=== PATIENT | male | born 1970 | race Caucasian/White ===

== ENCOUNTER 2018-06-11 11:54 | Inpatient (IN) | payer MEDICAID ==
[~2018-06-11] VITALS: Ht 182.9 cm; Wt 171.8 kg
[2018-06-11 14:42] VITALS: BP 120/71
[2018-06-11] MEDS ORDERED: PLEASE ENTER HEIGHT AND WEIGHT MC SCH (15:44)
[2018-06-11] MEDS ORDERED: morphine SULFATE 10 MG/ML, 1ML IVPush PRN (16:00)
[2018-06-11] MEDS ORDERED: ONDANSETRON ODT 4 MG PO PRN (16:00)
[2018-06-11] MEDS ORDERED: NITROGLYCERIN 0.4 MG BOTTLE (25 TABS) SL PRN (16:00)
[2018-06-11] MEDS ORDERED: ONDANSETRON 2MG/ML, 2ML IVPush PRN (16:00)
[2018-06-11] MEDS ORDERED: ACETAMINOPHEN 325 MG TABLET PO PRN (16:00)
[2018-06-11] MEDS: INSULIN LISPRO 100 UNITS/ML, PEN SQ-INSULIN SCH ×3 (16:00→23:58)
[2018-06-11] MEDS ORDERED: METO25TA91 PO (16:53)
[2018-06-11] MEDS ORDERED: AMLO-150 PO (16:53)
[2018-06-11] MEDS ORDERED: LOSA50TA14 PO (16:53)
[2018-06-11] MEDS ORDERED: ISOS20TA3 PO (16:53)
[2018-06-11] MEDS ORDERED: ATOR40TA78 PO (16:53)
[2018-06-11] MEDS ORDERED: ASPI-650 PO (16:53)
[2018-06-11] MEDS ORDERED: GABA600T7 PO (16:53)
[2018-06-11] MEDS ORDERED: FAMO-79 PO (16:53)
[2018-06-11] MEDS ORDERED: METO25TA35 PO (16:59)
[2018-06-11] MEDS ORDERED: LOSA1TAB22 PO (16:59)
[2018-06-11] MEDS ORDERED: CLOP75TA52 PO (16:59)
[2018-06-11 17:32] LABS: BASOPHILS # (AUTO) 0.04 x10^3/uL (0-0.1); BASOPHILS % (AUTO) 1 % (0-1); EOSINOPHILS # (AUTO) 0.11 x10^3/uL (0-0.4); EOSINOPHILS % (AUTO) 2 % (1-7); LYMPHOCYTES # (AUTO) 1.56 x10^3/uL (1-3.4); LYMPHOCYTES % (AUTO) 22 % (22-44); MD NO; MEAN CORPUSCULAR HEMOGLOBIN 29.7 pg (27.5-34.5); MEAN CORPUSCULAR HGB CONC 34.1 g/dL (33.2-36.2); MEAN CORPUSCULAR VOLUME 87.3 fL (81-97); MEAN PLATELET VOLUME 7.5 fL (7.4-10.4); MONOCYTES # (AUTO) 0.47 x10^3/uL (0.2-0.8); MONOCYTES % (AUTO) 7 % (2-9); NEUTROPHILS # (AUTO) 4.92 x10^3/uL (1.8-6.8); NEUTROPHILS % (AUTO) 69 % (42-75); PLATELET COUNT 259 x10^3/uL (130-400); RED BLOOD COUNT 4.55 x10^6/uL (4.38-5.82); RED CELL DISTRIBUTION WIDTH 13.8 % (9.4-14.8)
[2018-06-11 17:41] LABS: INTERNATIONAL NORMALIZED RATIO 0.97 (0.93-1.1); PROTHROMBIN TIME 10.2 Seconds (9.6-11.5)
[2018-06-11 17:43] LABS: ANION GAP 6 mmol/L (5-15); CALCIUM 8.8 mg/dL (8.5-10.1); CHLORIDE 104 mmol/L (98-107); CREATININE 1.12 mg/dL (0.7-1.3)
[2018-06-11] MEDS: SODIUM CHLORIDE 0.9% 1,000 ML IV SCH ×2 (17:45→23:53)
[2018-06-11 17:47] LABS: TROPONIN I < 0.015 ng/mL (0.000-0.045)
[2018-06-11] MEDS: HEPARIN 5,000 UNITS/ML, 1ML SQ SCH ×2 (18:01→23:54)
[2018-06-11] MEDS: CARVEDILOL 6.25 MG TABLET PO SCH (18:08)
[2018-06-11 19:15] VITALS: BP 112/66
[2018-06-11] MEDS ORDERED: ATORVASTATIN 40 MG TABLET PO SCH (21:00)
[2018-06-11] MEDS: ATORVASTATIN 40 MG TABLET PO SCH (21:01)
[2018-06-11] MEDS: GABAPENTIN 300 MG CAPSULE PO SCH (21:01)
[2018-06-11] MEDS: FAMOTIDINE 20 MG TABLET PO SCH (21:02)
[2018-06-11 21:44] LABS: TROPONIN I < 0.015 ng/mL (0.000-0.045)
[2018-06-12] MEDS: SODIUM CHLORIDE 0.9% 1,000 ML IV SCH ×3 (00:10→20:39)
[2018-06-12 02:00] VITALS: BP 120/77
[2018-06-12] MEDS ORDERED: GABAPENTIN 300 MG CAPSULE PO ONE (03:30)
[2018-06-12 05:01] LABS: BASOPHILS # (AUTO) 0.12 x10^3/uL (0-0.1); BASOPHILS % (AUTO) 2 % (0-1); EOSINOPHILS # (AUTO) 0.15 x10^3/uL (0-0.4); EOSINOPHILS % (AUTO) 2 % (1-7); LYMPHOCYTES # (AUTO) 1.67 x10^3/uL (1-3.4); LYMPHOCYTES % (AUTO) 24 % (22-44); MD NO; MEAN CORPUSCULAR HEMOGLOBIN 29.1 pg (27.5-34.5); MEAN CORPUSCULAR HGB CONC 33.3 g/dL (33.2-36.2); MEAN CORPUSCULAR VOLUME 87.4 fL (81-97); MEAN PLATELET VOLUME 7.5 fL (7.4-10.4); MONOCYTES % (AUTO) 8 % (2-9); NEUTROPHILS # (AUTO) 4.57 x10^3/uL (1.8-6.8); NEUTROPHILS % (AUTO) 64 % (42-75); PLATELET COUNT 220 x10^3/uL (130-400); RED BLOOD COUNT 4.26 x10^6/uL (4.38-5.82); RED CELL DISTRIBUTION WIDTH 13.6 % (9.4-14.8)
[2018-06-12 05:12] LABS: ANION GAP 3 mmol/L (5-15); CALCIUM 8.6 mg/dL (8.5-10.1); CHLORIDE 106 mmol/L (98-107); CREATININE 1.06 mg/dL (0.7-1.3)
[2018-06-12 05:16] LABS: PROTHROMBIN TIME 10.5 Seconds (9.6-11.5)
[2018-06-12] MEDS ORDERED: ASPIRIN 325 MG TABLET EC PO SCH (06:00)
[2018-06-12] MEDS: CARVEDILOL 6.25 MG TABLET PO SCH ×2 (06:04→18:02)
[2018-06-12 07:10] VITALS: BP 113/65
[2018-06-12] MEDS: GABAPENTIN 300 MG CAPSULE PO SCH (08:56)
[2018-06-12] MEDS: FAMOTIDINE 20 MG TABLET PO SCH ×2 (08:56→20:33)
[2018-06-12] MEDS: ISOSORBIDE MONONITRATE ER 30 MG TABLET PO SCH (08:56)
[2018-06-12] MEDS: LACTOBACILLUS CHEW TABLET PO SCH ×3 (08:56→20:33)
[2018-06-12] MEDS ORDERED: CLOPIDOGREL 75 MG TABLET PO SCH (09:00)
[2018-06-12] MEDS: HEPARIN 5,000 UNITS/ML, 1ML SQ SCH ×2 (09:27→16:00)
[2018-06-12 11:53] VITALS: BP 122/72
[2018-06-12] MEDS: INSULIN LISPRO 100 UNITS/ML, PEN SQ-INSULIN SCH ×3 (11:54→20:39)
[2018-06-12 14:26] VITALS: BP 137/77
[2018-06-12] MEDS ORDERED: IBUPROFEN 200 MG TABLET PO PRN (15:00)
[2018-06-12] MEDS ORDERED: HEPARIN 1,000 UNITS/ML, 10ML ONE (15:51)
[2018-06-12] MEDS ORDERED: TICAGRELOR 90 MG TABLET ONE (15:51)
[2018-06-12] MEDS ORDERED: FENTANYL PF 100 MCG/2ML ONE (15:51)
[2018-06-12] MEDS ORDERED: LIDOCAINE 2%, 20ML ONE (15:51)
[2018-06-12] MEDS ORDERED: BIVALIRUDIN 250 MG ONE (15:51)
[2018-06-12] MEDS ORDERED: VERAPAMIL 2.5 MG/ML, 2ML ONE (15:51)
[2018-06-12] MEDS ORDERED: MIDAZOLAM 1 MG/ML, 5ML ONE (15:51)
[2018-06-12] MEDS ORDERED: SODIUM CHLORIDE 0.9% 1,000 ML IV SCH (17:41)
[2018-06-12] MEDS: GABAPENTIN 400 MG CAPSULE PO SCH ×2 (18:03→20:32)
[2018-06-12 18:55] VITALS: BP 123/73
[2018-06-12] MEDS ORDERED: TRAM50TA2 PO (20:18)
[2018-06-12] MEDS: ATORVASTATIN 40 MG TABLET PO SCH (20:32)
[2018-06-13] MEDS: HEPARIN 5,000 UNITS/ML, 1ML SQ SCH ×2 (01:19→09:10)
[2018-06-13 01:55] VITALS: BP 144/72
[2018-06-13] MEDS: CARVEDILOL 6.25 MG TABLET PO SCH (05:22)
[2018-06-13 07:14] VITALS: BP 120/76
[2018-06-13 08:53] LABS: ANION GAP 6 mmol/L (5-15); CALCIUM 8.1 mg/dL (8.5-10.1); CHLORIDE 106 mmol/L (98-107); CREATININE 1.07 mg/dL (0.7-1.3)
[2018-06-13] MEDS ORDERED: ASPIRIN 81 MG TABLET EC PO SCH (09:00)
[2018-06-13] MEDS ORDERED: CLOPIDOGREL 75 MG TABLET PO SCH (09:00)
[2018-06-13] MEDS ORDERED: ACID1TAB7 PO (09:01)
[2018-06-13] MEDS ORDERED: CARV6.2512 PO (09:01)
[2018-06-13] MEDS ORDERED: NITR0.4T SL (09:01)
[2018-06-13] MEDS: FAMOTIDINE 20 MG TABLET PO SCH (09:09)
[2018-06-13] MEDS: INSULIN LISPRO 100 UNITS/ML, PEN SQ-INSULIN SCH ×2 (09:09→11:41)
[2018-06-13] MEDS: LACTOBACILLUS CHEW TABLET PO SCH (09:10)
[2018-06-13] MEDS: GABAPENTIN 400 MG CAPSULE PO SCH (09:10)
[2018-06-13] MEDS: ISOSORBIDE MONONITRATE ER 30 MG TABLET PO SCH (09:10)
[2018-06-13] MEDS: SODIUM CHLORIDE 0.9% 1,000 ML IV SCH (10:31)
[2018-06-13 13:19] VITALS: BP 148/89
== END 2018-06-13 13:47 | disposition home or self-care (01) | DRG 246 ==
LOC: 5SO 14:23 → DCLOUNGE 06-13 13:27
PROVIDERS: ADMIT Internal Medicine; ATTEND Internal Medicine
PROC: 4A023N7 Measurement of Cardiac Sampling and Pressure, Left Heart, Percutaneous Approach (ICD-10-PCS; principal; 2018-06-12)
PROC: 027034Z Dilation of Coronary Artery, One Artery with Drug-eluting Intraluminal Device, Percutaneous Approach (ICD-10-PCS; 2018-06-12)
PROC: B2111ZZ Fluoroscopy of Multiple Coronary Arteries using Low Osmolar Contrast (ICD-10-PCS; 2018-06-12)
PROC: B2151ZZ Fluoroscopy of Left Heart using Low Osmolar Contrast (ICD-10-PCS; 2018-06-12)
DX: I25.110 Atherosclerotic heart disease of native coronary artery with unstable angina pectoris (principal); I50.31 Acute diastolic (congestive) heart failure; Z68.43 Body mass index [BMI] 50.0-59.9, adult; T82.858A Stenosis of other vascular prosthetic devices, implants and grafts, initial encounter; D64.9 Anemia, unspecified; E11.40 Type 2 diabetes mellitus with diabetic neuropathy, unspecified; E11.65 Type 2 diabetes mellitus with hyperglycemia; E66.01 Morbid (severe) obesity due to excess calories; E78.5 Hyperlipidemia, unspecified; G47.00 Insomnia, unspecified; I11.0 Hypertensive heart disease with heart failure; N28.9 Disorder of kidney and ureter, unspecified; Y83.1 Surgical operation with implant of artificial internal device as the cause of abnormal reaction of the patient, or of later complication, without mention of misadventure at the time of the procedure; Z83.3 Family history of diabetes mellitus; Z87.891 Personal history of nicotine dependence; Z88.8 Allergy status to other drugs, medicaments and biological substances; Z82.49 Family history of ischemic heart disease and other diseases of the circulatory system; Z95.5 Presence of coronary angioplasty implant and graft; Z88.5 Allergy status to narcotic agent; Y92.89 Other specified places as the place of occurrence of the external cause
CPT/HCPCS: 36415; J3490; 80048; 82962; 83036; 84484; 85025; 85610; 93005; 93458; 93926; 99156; 99157; C1769; C1894; C8929; C9600; G0378; J0583; J1644; J2250; J3010; Q9957; C1725; C1874; C1887; J1815; J7030; Q9967